=== PATIENT | female | born 1990 | race Caucasian/White ===

== ENCOUNTER 2021-07-11 21:45 | Emergency (ER) | payer BC ==
[~2021-07-11] VITALS: Ht 172.7 cm; Wt 97.5 kg
[~2021-07-11 21:45] MED LIST: IBU-200200 MG PO; MIRENA1 EACH IY; NORCO 5-325 TA1 EACH PO; PRENATAL VITAM1 EAC2 PO; ZOLOFT50 MG PO
== END 2021-07-12 00:01 | disposition home or self-care (01) ==
LOC: ED 21:45
DX: K59.00 Constipation, unspecified (principal)
CPT/HCPCS: 99283